=== PATIENT | female | born 1960 | race Caucasian/White ===

== ENCOUNTER 2017-11-21 10:41 | Emergency (ER) | payer MEDICARE, SELFPAY ==
[2017-11-21 10:47] VITALS: BP 135/74; PULSE 94; RESP 22; TEMP 36.8; O2SAT 97
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
[2017-11-21 11:02] VITALS: RESP 8; O2SAT 97
[2017-11-21] MEDS: LEVOFLOXACIN 500 MG, LEVOFLOXACIN 250 MG 750 MG PO (11:02)
[2017-11-21] MEDS: Albuterol/Ipratropium 3 ML UPD VIAL UPD (11:02)
[2017-11-21] MEDS: predniSONE 20 MG TAB 60 MG PO (11:03)
[2017-11-21 11:22] VITALS: RESP 1
[2017-11-21 11:42] VITALS: RESP 1
[2017-11-21] MEDS: Albuterol 2.5 MG/3 ML INH SOLN VIAL UPD (11:42)
[2017-11-21 12:09] VITALS: BP 111/67; PULSE 99; RESP 16; O2SAT 97
== END 2017-11-21 12:09 | disposition home or self-care (01) ==
PROVIDERS: Emergency Provider Emergency Medicine
DX: J44.1 Chronic obstructive pulmonary disease with (acute) exacerbation (principal); R07.89 Other chest pain; Z87.891 Personal history of nicotine dependence
CPT/HCPCS: 93005; 94640; 99284; 93010; 99285; J7512; J7613; J7620